=== PATIENT | male | born 1945 | race Caucasian/White ===

== ENCOUNTER → 2019-10-05 | Outpatient (CLI) | payer OTHER ==
[~2019-10-05] VITALS: Ht 165.1 cm; Wt 90.4 kg
[~2019-10-05] MED LIST: ASPIR-LOW81 MG PO; ASPIRIN 32325 MG/TAB PO; CLOPIDOGREL; CRESTOR40 MG PO; ELIQUIS 5MG PO; GLUCOTROL 5M5 MG/TAB PO; HCTZ; HCTZ 25MG TAB25 MG PO; LIPITOR 40MG TA40 MG PO; NITROSTAT0.4 MG/TAB SL; PLAVIX 75MG TAB75 MG PO; PRILOSEC 20MG20 MG PO; PRINIVIL20 MG PO; PROSCAR 5MG5 MG PO; PROTONIX 40MG T40 MG PO; TOPROL XL 50MG50 MG PO; TOPROL XL100 MG PO; ZOCOR80 MG PO
[2019-10-05 10:47] VITALS: BP 179/87; PULSE 66
--- NOTE | 2019-10-05 11:15 | NUR ---
Pt states today is not a good day for him he is hurting. Pt refuses to continue with the test. Int removed, catheter tip intact. 2x2 and coban to site. Pressure per coban. Pt out to car per scooter to . Pts informed he decided he did not want to complete the test.
--- NOTE | 2019-10-05 11:27 | NUR ---
pt refused to go through with test
== END ==
LOC: COL.CARD 10:25
DX: R06.00 Dyspnea, unspecified (principal); I25.10 Atherosclerotic heart disease of native coronary artery without angina pectoris; E11.9 Type 2 diabetes mellitus without complications